=== PATIENT | female | born 1940 ===

== ENCOUNTER 2017-05-24 19:23 | Emergency (ER) | payer OTHER ==
[2017-05-24 19:38] VITALS: BP 115/63; PULSE 96; RESP 16; TEMP 99.7; O2SAT 98
[2017-05-24] MEDS ORDERED: Amoxicillin-Clav 875-125 mg Tab PO STA (20:30)
--- NOTE | 2017-05-24 20:36 | ED PDOC ---
HPI: CCC, URI, Sore Throat Time Seen by Provider: 05/24/17 19:48 Chief Complaint (Nursing): ENT Problem Chief Complaint (Provider): Ear pain History Per: Patient History/Exam Limitations: no limitations Onset/Duration Of Symptoms: Days (3 days ago) Current Symptoms Are (Timing): Still Present Additional Complaint(s): 76 y/o female with a past medical history of Diabetes Mellitus Type 2 and Hypertension presents to the ED complaining of left ear pain, onset of 2 days. Patient reports of taking Tylenol, but experiences minimal relief. Past Medical History Reviewed: Historical Data, Nursing Documentation, Vital Signs Vital Signs: Last Vital Signs Temp 99.7 F H 05/24/17 19:35 Pulse 96 H 05/24/17 19:35 Resp 16 05/24/17 19:35 BP 115/63 05/24/17 19:35 Pulse Ox 98 05/24/17 20:44 - Medical History PMH: Diabetes, HTN Denies: Chronic Kidney Disease - Surgical History Surgical History: No Surg Hx - Family History Family History: States: Unknown Family Hx - Social History Current smoker - smoking cessation education provided: No Ex-Smoker (has not smoked in the last 12 months): No Alcohol: None Drugs: Denies - Home Medications Home Medications: Ambulatory Orders Medication Instructions Recorded GlipiZIDE [Glucotrol] 1 tab PO BID 06/21/16 Metformin HCl [Glucophage] 1 tab PO BID 06/21/16 amLODIPine [Norvasc] 5 mg PO BID 06/21/16 Penicillin VK [Pen-Vee K] 500 mg PO BID #20 tab 06/22/16 Amoxicillin/Clavulanate [Augmentin 1 tab PO BID #14 tab 05/24/17 875 MG-125 MG] Ciprofloxacin/Dexamethasone 1 drop OT BID #1 bottle 05/24/17 [Ciprodex 0.3%-0.1% 7.5 Ml] Ibuprofen [Motrin] 600 mg PO Q6 #20 tab 05/24/17 - Allergies Allergies/Adverse Reactions: Allergies Allergy/AdvReac Type Severity Reaction Status Date / Time No Known Allergies Allergy Verified 05/24/17 19:35 Review of Systems ROS Statement: Except As Marked, All Systems Reviewed And Found Negative Constitutional: Negative for: Fever ENT: Positive for: Ear Pain Physical Exam - Reviewed Nursing Documentation Reviewed: Yes Vital Signs Reviewed: Yes - Physical Exam Appears: Positive for: Non-toxic, No Acute Distress Head Exam: Positive for: ATRAUMATIC Skin: Positive for: Normal Color, Warm Eye Exam: Positive for: Normal appearance ENT: Positive for: Normal ENT Inspection, TM Is/Are (erythematous in the left ear) Cardiovascular/Chest: Positive for: Regular Rate, Rhythm. Negative for: Murmur Respiratory: Positive for: Normal Breath Sounds. Negative for: Respiratory Distress Neurologic/Psych: Positive for: Alert, Oriented. Negative for: Motor/Sensory Deficits - ECG O2 Sat by Pulse Oximetry: 98 (RA) Pulse Ox Interpretation: Normal Medical Decision Making Medical Decision Making: Time: --20:30 Impression: --76 y/o female with Otitis Media Plan: --Amoxicillin 1 tab PO --Ibuprofen 600mg PO Reassess -- doing well on re-eval, stable for discharge Scribe Attestation: Documented by Neftaly Flor acting as a scribe for ALEXA Maya. Disposition - Clinical Impression Clinical Impression: Otitis media - Patient ED Disposition Is Patient to be Admitted: No - Disposition Disposition: Routine/Home Disposition Time: 23:10 Condition: STABLE Prescriptions: Amoxicillin/Clavulanate [Augmentin 875 MG-125 MG] 1 tab PO BID #14 tab Ciprofloxacin/Dexamethasone [Ciprodex 0.3%-0.1% 7.5 Ml] 1 drop OT BID #1 bottle Ibuprofen [Motrin] 600 mg PO Q6 #20 tab Instructions: Otitis Media (ED) Forms: [employer] ([place])
[2017-05-24] MEDS ORDERED: Amoxicillin-Clav 875-125 mg Tab PO ONE (20:37)
== END 2017-05-24 21:03 | disposition home or self-care (01) ==
LOC: H.ER 19:23
DX: H66.90 Otitis media, unspecified, unspecified ear (principal); E11.9 Type 2 diabetes mellitus without complications; I10 Essential (primary) hypertension; Z87.891 Personal history of nicotine dependence

== ENCOUNTER 2018-02-05 17:01 | Observation (INO) | payer SELFPAY ==
[2018-02-05 19:16] LABS: BASO # 0.1 K/uL (0.0-0.2); BASO % 0.8 % (0.0-2.0); EOS # 0.1 K/uL (0.0-0.7); HEMOGLOBIN 7.7 g/dL (12.0-16.0); LYMPH # 1.5 K/uL (1.0-4.3); LYMPH % 13.8 % (20.0-40.0); MEAN CELL VOLUME 69.6 fl (81.0-99.0); MEAN CORPUSCULAR HEMOGLOBIN 20.9 pg (27.0-31.0); MEAN PLATELET VOLUME 8.6 fl (7.2-11.7); MONO # 0.4 K/uL (0.0-0.8); MONO % 3.3 % (0.0-10.0); NEUT % 81.1 % (50.0-75.0); RBC 3.68 Mil/uL (3.80-5.20)
[2018-02-05 19:24] LABS: ALB/GLOB RATIO 1.4 (1.0-2.1); ALBUMIN 4.4 g/dL (3.5-5.0); ALT/SGPT 38 U/L (9-52); AST/SGOT 40 U/L (14-36); BLOOD UREA NITROGEN 18 mg/dl (7-17); CALCIUM 9.4 mg/dL (8.4-10.2); GFR NON-AFRICAN AMERICAN > 60
[2018-02-05 19:30] LABS: PROTHROMBIN TIME 10.5 Seconds (9.8-13.1)
[2018-02-05 19:33] LABS: PARTIAL THROMBOPLASTIN TIME 25.7 Seconds (25.6-37.1)
[2018-02-05 19:35] LABS: IRON < 10 ug/dL (37-170); TOTAL IRON BINDING CAPACITY 475 ug/dL (250-450)
[2018-02-05 19:42] LABS: % IRON SATURATION < 2 % (20-55)
--- NOTE | 2018-02-05 19:50 | ED PDOC ---
HPI: General Adult Time Seen by Provider: 02/05/18 17:53 Chief Complaint (Nursing): Abnormal Labs Chief Complaint (Provider): Abnormal labs History Per: Patient History/Exam Limitations: no limitations Additional Complaint(s): 77yo female, history of gastritis, anemia, hypertension, diabetes, sent to ER for evaluation due to abnormal lab results. Patient reports having progressive lightheadedness x 1 month with no associated chest pain. Patient reports shortness of breath with exertion. She denies any black or bloody stools, lower extremity swelling, or headache. Patient's outpatient workup showed low hemoglobin of 7.2 so patient was sent to ER for further evaluation. PMD: Clinic Past Medical History Reviewed: Historical Data, Nursing Documentation, Vital Signs Vital Signs: Last Vital Signs Temp 98.6 F 02/06/18 12:00 Pulse 100 H 02/06/18 13:13 Resp 18 02/06/18 13:13 BP 151/81 H 02/06/18 12:00 Pulse Ox 98 02/06/18 14:44 - Medical History PMH: Diabetes, Gastritis, HTN Denies: Chronic Kidney Disease - Family History Family History: States: No Known Family Hx - Social History Current smoker - smoking cessation education provided: No - Home Medications Home Medications: Ambulatory Orders Medication Instructions Recorded GlipiZIDE [Glucotrol] 1 tab PO BID 06/21/16 Metformin HCl [Glucophage] 1 tab PO BID 06/21/16 amLODIPine [Norvasc] 5 mg PO BID 06/21/16 Simvastatin 20 mg PO HS #30 tablet 02/05/18 Docusate [Colace] 100 mg PO HS PRN #30 cap 02/06/18 Ferrous Sulfate [Ferosul] 325 mg PO BID #60 tablet 02/06/18 - Allergies Allergies/Adverse Reactions: Allergies Allergy/AdvReac Type Severity Reaction Status Date / Time No Known Allergies Allergy Verified 02/05/18 17:14 Review of Systems ROS Statement: Except As Marked, All Systems Reviewed And Found Negative Cardiovascular: Positive for: Light Headedness Respiratory: Positive for: Shortness of Breath Physical Exam - Reviewed Nursing Documentation Reviewed: Yes Vital Signs Reviewed: Yes - Physical Exam Appears: Positive for: Well, Non-toxic, No Acute Distress Head Exam: Positive for: ATRAUMATIC, NORMAL INSPECTION, NORMOCEPHALIC Skin: Positive for: Warm, Pallor Eye Exam: Positive for: EOMI, PERRL, Other (conjunctival pallor) ENT: Positive for: Normal ENT Inspection Neck: Positive for: Normal, Painless ROM Cardiovascular/Chest: Positive for: Regular Rate, Rhythm Respiratory: Positive for: CNT, Normal Breath Sounds Gastrointestinal/Abdominal: Positive for: Normal Exam, Soft Back: Positive for: Normal Inspection Extremity: Positive for: Normal ROM Neurologic/Psych: Positive for: Alert, Oriented - Laboratory Results Result Diagrams: 02/06/18 13:52 02/05/18 19:06 - ECG ECG: Positive for: Interpreted By Me, Viewed By Me ECG Rhythm: Positive for: Normal QRS, Normal ST Segment, Sinus Tachycardia Rate: 102 O2 Sat by Pulse Oximetry: 96 (RA) Pulse Ox Interpretation: Normal Medical Decision Making Medical Decision Making: Impression: Anemia Reviewed previous labs and on 01/06/18 patient noted to have Hgb 7.2 and low iron levels. Stool occult (3 samples) at that time was negative. Plan: -- Labs -- EKG Labs reviewed, demonstrate Hgb level of 7.7. Patient will be hospitalized for transfusion and further evaluation. Scribe Attestation: Documented by Sumemr Plata, acting as a scribe for Roselyn Spencer MD. Provider Scribe Attestation: All medical record entries made by the Scribe were at my direction and personally dictated by me. I have reviewed the chart and agree that the record accurately reflects my personal performance of the history, physical exam, medical decision making, and the department course for this patient. I have also personally directed, reviewed, and agree with the discharge instructions and disposition. Disposition - Clinical Impression Clinical Impression: Anemia, Iron deficiency Counseled Patient/Family Regarding: Studies Performed, Diagnosis - Disposition Disposition Time: 20:30 Condition: FAIR - Pt Status Changed To: Hospital Disposition Of: Observation - POA Present On Arrival: None
[2018-02-05 20:00] LABS: FERRITIN 5.1 ng/Ml (11.1-264.0)
--- NOTE | 2018-02-05 21:09 | CP.PCM.HP ---
<Aishwarya Yates - Last Filed: 02/06/18 01:11> History of Present Illness - History of Present Illness History of Present Illness: 77 yr old F sent from clinic due to symptomatic anemia. Patient was recently diagnosed with iron deficiency anemia in 10/2017. PMHx includes NIDDM type 2, HTN and hyperlipidemia. [facility] records reviewed, most recent H/H was 7.2/23.3 with FOBT x 3 neg on 01/06/18. Reports fatigue and dyspnea on exertion. Denies dyspnea at rest, chest pain, dizziness, blurry vision or syncope. Denies melena , hematochezia or dark stool. Denies hematuria, abdominal pain, nausea, vomiting , fever or chills. No hx blood transfusion in the past. Denies hx EGD/ colonoscopy in the past. PMD: [facility] PMHx: Iron deficiency anemia, NIDDM type 2, HTN, hyperlipidemia, GERD, hx H. pylori infection in 2014 SurgHx: None SocHx: denies tobacco/Etoh or drugs Familyhx: denies family hx CA or IBD. Daughter has NIDDM type 2 Allergies: NKDA Medications: Metformin 1000 mg po BID, glipizide 10 mg po BID, Simvastatin 20 mg po QD, ASA 81 mg Code status: full code Emergency contact: Shereen Mishra (daughter) [phone] ER course: BP 136/77 mmHg, HR 104 bpm, Temp 98.1 F, Resp rate 20, SpO2 96% on room air -EKG: sinus tachycardia at 102 bpm, no significant ST-T changes -CBC: WBC 11.0, H/H 7.7/25.6, MCV 69.6 RDW 21, plts 262, neutrophil % 81.1 -CMP: wnl, magnesium 1.5 -iron studies: iron <10, TIBC 475, % sat <2, ferritin 5.1 -CXR: official report pending, prelim: no active disease -urine culture pending -ED treatment: 2 units pRBC's Present on Admission - Present on Admission Any Indicators Present on Admission: No History of DVT/PE: No Urinary Catheter: No Decubitus Ulcer Present: No History Surgical Site Infection Following: None Review of Systems - Constitutional Constitutional: Fatigue. absent: Chills, Fever, Headache, Weight Loss - EENT Eyes: absent: Blurred Vision Nose/Mouth/Throat: absent: Nasal Congestion, Sore Throat - Cardiovascular Cardiovascular: absent: Chest Pain, Dyspnea, Leg Edema, Palpitations - Respiratory Respiratory: absent: Cough, Dyspnea, Dyspnea on Exertion - Gastrointestinal Gastrointestinal: absent: Abdominal Pain, Constipation, Diarrhea, Nausea, Vomiting - Genitourinary Genitourinary: absent: Difficulty Urinating, Dysuria - Musculoskeletal Musculoskeletal: absent: Arthralgias, Numbness, Tingling - Neurological Neurological: absent: Tingling, Weakness - Endocrine Endocrine: absent: Polydipsia, Polyphagia, Polyuria - Hematologic/Lymphatic Hematologic: absent: Easy Bleeding, Easy Bruising Past Patient History - Past Medical History & Family History Past Medical History?: Yes - Past Social History Smoking Status: Never Smoked - CARDIAC Hx Hypertension: Yes - PULMONARY Hx Respiratory Disorders: No - NEUROLOGICAL Hx Neurological Disorder: No - HEENT Hx HEENT Problems: No - RENAL Hx Chronic Kidney Disease: No - ENDOCRINE/METABOLIC Hx Diabetes Mellitus Type 2: Yes - HEMATOLOGICAL/ONCOLOGICAL Hx Blood Disorders: No - INTEGUMENTARY Hx Dermatological Problems: No - MUSCULOSKELETAL/RHEUMATOLOGICAL Hx Musculoskeletal Disorders: No - GASTROINTESTINAL Hx Gastritis: Yes - GENITOURINARY/GYNECOLOGICAL Hx Genitourinary Disorders: No - PSYCHIATRIC Hx Psychophysiologic Disorder: No Hx Substance Use: No - SURGICAL HISTORY Hx Surgeries: No - ANESTHESIA Hx Anesthesia: No Hx Anesthesia Reactions: No Hx Malignant Hyperthermia: No Meds Home Medications: Home Medication List Medication Instructions Recorded Confirmed Type Simvastatin 20 mg PO HS #30 tablet 02/05/18 Rx Allergies/Adverse Reactions: Allergies Allergy/AdvReac Type Severity Reaction Status Date / Time No Known Allergies Allergy Verified 02/05/18 17:14 Physical Exam - Constitutional Appears: No Acute Distress - Head Exam Head Exam: ATRAUMATIC, NORMOCEPHALIC - Eye Exam Eye Exam: EOMI, PERRL Additional comments: bilateral pale conjunctiva - ENT Exam ENT Exam: Mucous Membranes Moist - Neck Exam Neck exam: Positive for: Full Rom. Negative for: Lymphadenopathy - Respiratory Exam Respiratory Exam: Clear to Auscultation Bilateral, NORMAL BREATHING PATTERN. absent: Rales, Wheezes - Cardiovascular Exam Cardiovascular Exam: REGULAR RHYTHM, +S1, +S2 - GI/Abdominal Exam GI & Abdominal Exam: Normal Bowel Sounds, Soft. absent: Tenderness - Extremities Exam Extremities exam: Positive for: full ROM. Negative for: calf tenderness, pedal edema, tenderness - Back Exam Back exam: absent: CVA tenderness (L), CVA tenderness (R) - Neurological Exam Neurological exam: Alert, CN II-XII Intact, Oriented x3 - Psychiatric Exam Psychiatric exam: Normal Affect, Normal Mood - Skin Skin Exam: Dry, Normal Color, Warm Results - Vital Signs Recent Vital Signs: Last Vital Signs Temp 98.1 F 02/05/18 17:14 Pulse 104 H 02/05/18 17:14 Resp 20 02/05/18 17:14 BP 136/77 02/05/18 17:14 Pulse Ox 96 02/05/18 19:55 - Labs Result Diagrams: 02/05/18 19:06 02/05/18 19:06 Labs: Laboratory Results - last 24 hr 02/05/18 02/05/18 02/05/18 18:46 19:06 19:06 WBC 11.0 H D RBC 3.68 L Hgb 7.7 L Hct 25.6 L MCV 69.6 L MCH 20.9 L MCHC 30.0 L RDW 21.0 H Plt Count 262 MPV 8.6 Neut % (Auto) 81.1 H Lymph % (Auto) 13.8 L Garfield % (Auto) 3.3 Eos % (Auto) 1.0 Baso % (Auto) 0.8 Neut # (Auto) 9.0 H Lymph # (Auto) 1.5 Garfield # (Auto) 0.4 Eos # (Auto) 0.1 Baso # (Auto) 0.1 PT INR APTT Sodium 140 Potassium 4.3 Chloride 102 Carbon Dioxide 25 Anion Gap 17 BUN 18 H Creatinine 0.7 Est GFR ( Amer) > 60 Est GFR (Non-Af Amer) > 60 Random Glucose 225 H Calcium 9.4 Phosphorus 3.8 Magnesium 1.5 L Iron TIBC % Saturation Ferritin 5.1 L Total Bilirubin 0.1 L AST 40 H ALT 38 Alkaline Phosphatase 76 Troponin I < 0.0120 Total Protein 7.5 Albumin 4.4 Globulin 3.1 Albumin/Globulin Ratio 1.4 TSH 3rd Generation 0.52 Blood Type O POSITIVE Antibody Screen Negative BBK History Checked No verified bt 02/05/18 02/05/18 19:06 19:06 WBC RBC Hgb Hct MCV MCH MCHC RDW Plt Count MPV Neut % (Auto) Lymph % (Auto) [place]field % (Auto) Eos % (Auto) Baso % (Auto) Neut # (Auto) Lymph # (Auto) Garfield # (Auto) Eos # (Auto) Baso # (Auto) PT 10.5 INR 1.0 APTT 25.7 Sodium Potassium Chloride Carbon Dioxide Anion Gap BUN Creatinine Est GFR ( Amer) Est GFR (Non-Af Amer) Random Glucose Calcium Phosphorus Magnesium Iron < 10 L TIBC 475 H % Saturation < 2 L Ferritin Total Bilirubin AST ALT Alkaline Phosphatase Troponin I Total Protein Albumin Globulin Albumin/Globulin Ratio TSH 3rd Generation Blood Type Antibody Screen BBK History Checked Assessment & Plan - Assessment and Plan (Free Text) Assessment: 77 yr old F admitted for symptomatic anemia with PMHx recently diagnosed iron deficiency anemia in 10/2017, Iron deficiency anemia, NIDDM type 2, HTN, hyperlipidemia. Symptomatic iron deficiency anemia -acute -Admit to tele -cbc, type and cross -transfuse 2 units of PRBC; f/u pots transfusion CBC -Monitor H/H NIDDM Type 2 - chronic, Uncontrolled - HbA1C 8.7 on 11/27/17 - hold Metformin - Continue with Glipizide 10mg PO BID Consistent Carbohydrate - POC glucose: ACHS Hypertension -Controlled -amlodipine was discontinued in last clinic visit due to low normal BP Hyperlipidemia -chronic, controlled -continue statin 20mg PO HS DVT prophylaxis -SCDs for now -anticoagulation on held due to anemia Code status: Full code - Date & Time Date: 02/05/18 Time: 21:07 <Harshal Owen - Last Filed: 02/06/18 05:03> Results - Vital Signs Recent Vital Signs: Last Vital Signs Temp 98.6 F 02/06/18 03:56 Pulse 104 H 02/06/18 03:56 Resp 16 02/06/18 03:56 BP 134/73 02/06/18 03:56 Pulse Ox 99 02/06/18 02:57 - Labs Result Diagrams: 02/05/18 19:06 02/05/18 19:06 Labs: Laboratory Results - last 24 hr 02/05/18 02/05/18 02/05/18 18:46 19:06 19:06 WBC 11.0 H D RBC 3.68 L Hgb 7.7 L Hct 25.6 L MCV 69.6 L MCH 20.9 L MCHC 30.0 L RDW 21.0 H Plt Count 262 MPV 8.6 Neut % (Auto) 81.1 H Lymph % (Auto) 13.8 L Garfield % (Auto) 3.3 Eos % (Auto) 1.0 Baso % (Auto) 0.8 Neut # (Auto) 9.0 H Lymph # (Auto) 1.5 Garfield # (Auto) 0.4 Eos # (Auto) 0.1 Baso # (Auto) 0.1 PT INR APTT Sodium 140 Potassium 4.3 Chloride 102 Carbon Dioxide 25 Anion Gap 17 BUN 18 H Creatinine 0.7 Est GFR ( Amer) > 60 Est GFR (Non-Af Amer) > 60 POC Glucose (mg/dL) Random Glucose 225 H Calcium 9.4 Phosphorus 3.8 Magnesium 1.5 L Iron TIBC % Saturation Ferritin 5.1 L Total Bilirubin 0.1 L AST 40 H ALT 38 Alkaline Phosphatase 76 Troponin I < 0.0120 Total Protein 7.5 Albumin 4.4 Globulin 3.1 Albumin/Globulin Ratio 1.4 TSH 3rd Generation 0.52 Urine Color Urine Clarity Urine pH Ur Specific [place] Urine Protein Urine Glucose (UA) Urine Ketones Urine Blood Urine Nitrate Urine Bilirubin Urine Urobilinogen Ur Leukocyte Esterase Urine RBC (Auto) Urine Microscopic WBC Ur Squamous Epith Cells Blood Type O POSITIVE Blood Type Confirm Antibody Screen Negative Crossmatch See Detail BBK History Checked No verified bt 02/05/18 02/05/18 02/05/18 19:06 19:06 21:22 WBC RBC Hgb Hct MCV MCH MCHC RDW Plt Count MPV Neut % (Auto) Lymph % (Auto) [place] % (Auto) Eos % (Auto) Baso % (Auto) Neut # (Auto) Lymph # (Auto) [place] # (Auto) Eos # (Auto) Baso # (Auto) PT 10.5 INR 1.0 APTT 25.7 Sodium Potassium Chloride Carbon Dioxide Anion Gap BUN Creatinine Est GFR ( Amer) Est GFR (Non-Af Amer) POC Glucose (mg/dL) Random Glucose Calcium Phosphorus Magnesium Iron < 10 L TIBC 475 H % Saturation < 2 L Ferritin Total Bilirubin AST ALT Alkaline Phosphatase Troponin I Total Protein Albumin Globulin Albumin/Globulin Ratio TSH 3rd Generation Urine Color Yellow Urine Clarity Slighty-cloudy Urine pH 6.0 Ur Specific [place] 1.016 Urine Protein 30 Urine Glucose (UA) 150 Urine Ketones 20 Urine Blood Negative Urine Nitrate Negative Urine Bilirubin Negative Urine Urobilinogen 0.2-1.0 Ur Leukocyte Esterase Mod Urine RBC (Auto) 2 Urine Microscopic WBC 35 H Ur Squamous Epith Cells 1 Blood Type Blood Type Confirm Antibody Screen Crossmatch BBK History Checked 02/05/18 02/06/18 23:35 00:40 WBC RBC Hgb Hct MCV MCH MCHC RDW Plt Count MPV Neut % (Auto) Lymph % (Auto) [place] % (Auto) Eos % (Auto) Baso % (Auto) Neut # (Auto) Lymph # (Auto) Garfield # (Auto) Eos # (Auto) Baso # (Auto) PT INR APTT Sodium Potassium Chloride Carbon Dioxide Anion Gap BUN Creatinine Est GFR ( Amer) Est GFR (Non-Af Amer) POC Glucose (mg/dL) 190 H Random Glucose Calcium Phosphorus Magnesium Iron TIBC % Saturation Ferritin Total Bilirubin AST ALT Alkaline Phosphatase Troponin I Total Protein Albumin Globulin Albumin/Globulin Ratio TSH 3rd Generation Urine Color Urine Clarity Urine pH Ur Specific [place] Urine Protein Urine Glucose (UA) Urine Ketones Urine Blood Urine Nitrate Urine Bilirubin Urine Urobilinogen Ur Leukocyte Esterase Urine RBC (Auto) Urine Microscopic WBC Ur Squamous Epith Cells Blood Type Blood Type Confirm O POSITIVE Antibody Screen Crossmatch BBK History Checked Attending/Attestation - Attestation I have personally seen and examined this patient.: Yes I have fully participated in the care of the patient.: Yes I have reviewed all pertinent clinical information: Yes Notes (Text): 02/06/18 04:47 I saw and examined this patient with Dr Yates. I agree with the assessment and plan outlined which represent my direct input. This is a 77 years old female with hx of DM II gastritis and HTN who was found to have abnormal lab results of Hemoglobin of 7.2gm/dl in the Clinic and 7.7g/ dl in the ED with low Iron and % saturation with elevated TIBC. A&P #. Iron Deficiency Anemia - Transfuse PRBC - Iron Supplement #. Hypomagnesemia - Magnesium Sulfate #. DM II with hyperglycemia - Regular Insulin according to Accucheck - Metformin - Glipizide - HbA1c 8.7 on 11/27/17 #. HTN uncontrolled - Norvasc #. DVT prophylaxis with SCD #. Code Status: Full
[2018-02-05 21:48] LABS: SQUAMOUS EPITHIAL 1 /hpf (0-5); URINE BILIRUBIN NEGATIVE (NEGATIVE); URINE BLOOD NEGATIVE (NEGATIVE); URINE CLARITY SLIGHTY-CLOUDY (Clear); URINE COLOR YELLOW (YELLOW); URINE GLUCOSE (UA) 150 mg/dL (Normal); URINE LEUKOCYTE ESTERASE MOD Leu/uL (Negative); URINE PROTEIN 30 mg/dL (NEGATIVE); URINE UROBILINOGEN 0.2-1.0 mg/dL (0.2-1.0)
[2018-02-06] MEDS ORDERED: Magnesium Sulfate 2 gm/50 ml 2 GM/50 ML BAG IVPB ONE (04:43)
[2018-02-06] MEDS ORDERED: Magnesium Sulfate 2 gm/50 ml 2 GM/50 ML BAG ONE (06:25)
[2018-02-06] MEDS: Insulin Regular 100 units/ml SC SCH ×2 (07:12→14:25)
--- NOTE | 2018-02-06 07:50 | CARD ---
APPROVED REPORT Date of service: 02/05/2018 EKG Measurement Heart [id number] <Conclusion> Sinus tachycardia Otherwise normal ECG
--- NOTE | 2018-02-06 08:47 | RAD ---
Date of service: 02/05/2018 HISTORY: anemia weakness COMPARISON: Chest radiographs 03/21/2017. FINDINGS: LUNGS: No active pulmonary disease. PLEURA: No significant pleural effusion identified, no pneumothorax apparent. CARDIOVASCULAR: Stable cardiovascular silhouette. No pulmonary vascular congestion. OSSEOUS STRUCTURES: No significant abnormalities. VISUALIZED UPPER ABDOMEN: Normal. OTHER FINDINGS: None. IMPRESSION: No interval acute cardiopulmonary disease appreciated.
[2018-02-06] MEDS ORDERED: Pneumococcal 23-Valent Vaccine IM ONE (13:24)
[2018-02-06 14:41] LABS: HEMOGLOBIN 10.8 g/dL (12.0-16.0); MEAN CELL VOLUME 74.9 fl (81.0-99.0); MEAN CORPUSCULAR HEMOGLOBIN 23.8 pg (27.0-31.0); MEAN CORPUSCULAR HGB CONC 31.8 g/dL (33.0-37.0); RBC 4.55 Mil/uL (3.80-5.20); RED CELL DISTRIBUTION WIDTH 24.1 % (11.5-14.5); WHITE BLOOD COUNT 7.5 K/uL (4.8-10.8)
--- NOTE | 2018-02-06 15:10 | CP.PCM.DIS ---
Provider - Provider Date of Admission: 02/05/18 20:45 Attending physician: Harshal Owen Time Spent in preparation of Discharge (in minutes): 25 Diagnosis - Discharge Diagnosis (1) Iron deficiency anemia Status: Acute (2) Diabetes mellitus Status: Chronic (3) Leukocytosis Status: Resolved (4) Hypertension Status: Chronic Hospital Course - Lab Results Lab Results: Most Recent Lab Values WBC 7.5 K/uL (4.8-10.8) 02/06/18 13:52 RBC 4.55 Mil/uL (3.80-5.20) 02/06/18 13:52 Hgb 10.8 g/dL (12.0-16.0) L D 02/06/18 13:52 Hct 34.1 % (34.0-47.0) 02/06/18 13:52 MCV 74.9 fl (81.0-99.0) L D 02/06/18 13:52 MCH 23.8 pg (27.0-31.0) L 02/06/18 13:52 MCHC 31.8 g/dL (33.0-37.0) L 02/06/18 13:52 RDW 24.1 % (11.5-14.5) H 02/06/18 13:52 Plt Count 230 K/uL (130-400) 02/06/18 13:52 MPV 8.6 fl (7.2-11.7) 02/05/18 19:06 Neut % (Auto) 81.1 % (50.0-75.0) H 02/05/18 19:06 Lymph % (Auto) 13.8 % (20.0-40.0) L 02/05/18 19:06 [place] % (Auto) 3.3 % (0.0-10.0) 02/05/18 19:06 Eos % (Auto) 1.0 % (0.0-4.0) 02/05/18 19:06 Baso % (Auto) 0.8 % (0.0-2.0) 02/05/18 19:06 Neut # (Auto) 9.0 K/uL (1.8-7.0) H 02/05/18 19:06 Lymph # (Auto) 1.5 K/uL (1.0-4.3) 02/05/18 19:06 [place] # (Auto) 0.4 K/uL (0.0-0.8) 02/05/18 19:06 Eos # (Auto) 0.1 K/uL (0.0-0.7) 02/05/18 19:06 Baso # (Auto) 0.1 K/uL (0.0-0.2) 02/05/18 19:06 PT 10.5 Seconds (9.8-13.1) 02/05/18 19:06 INR 1.0 02/05/18 19:06 APTT 25.7 Seconds (25.6-37.1) 02/05/18 19:06 Sodium 140 mmol/l (132-148) 02/05/18 19:06 Potassium 4.3 MMOL/L (3.6-5.0) 02/05/18 19:06 Chloride 102 mmol/L (98-107) 02/05/18 19:06 Carbon Dioxide 25 mmol/L (22-30) 02/05/18 19:06 Anion Gap 17 (10-20) 02/05/18 19:06 BUN 18 mg/dl (7-17) H 02/05/18 19:06 Creatinine 0.7 mg/dl (0.7-1.2) 02/05/18 19:06 Est GFR ( Amer) > 60 02/05/18 19:06 Est GFR (Non-Af Amer) > 60 02/05/18 19:06 POC Glucose (mg/dL) 143 mg/dL (65-110) H 02/06/18 06:57 Random Glucose 225 mg/dL (65-105) H 02/05/18 19:06 Calcium 9.4 mg/dL (8.4-10.2) 02/05/18 19:06 Phosphorus 3.8 mg/dl (2.5-4.5) 02/05/18 19:06 Magnesium 1.5 MG/DL (1.6-2.3) L 02/05/18 19:06 Iron < 10 ug/dL (37-170) L 02/05/18 19:06 TIBC 475 ug/dL (250-450) H 02/05/18 19:06 % Saturation < 2 % (20-55) L 02/05/18 19:06 Ferritin 5.1 ng/Ml (11.1-264.0) L 02/05/18 19:06 Total Bilirubin 0.1 mg/dl (0.2-1.3) L 02/05/18 19:06 AST 40 U/L (14-36) H 02/05/18 19:06 ALT 38 U/L (9-52) 02/05/18 19:06 Alkaline Phosphatase 76 U/L (38-126) 02/05/18 19:06 Troponin I < 0.0120 ng/mL (0.00-0.120) 02/05/18 19:06 Total Protein 7.5 G/DL (6.3-8.2) 02/05/18 19:06 Albumin 4.4 g/dL (3.5-5.0) 02/05/18 19:06 Globulin 3.1 gm/dL (2.2-3.9) 02/05/18 19:06 Albumin/Globulin Ratio 1.4 (1.0-2.1) 02/05/18 19:06 TSH 3rd Generation 0.52 mIU/ML (0.46-4.68) 02/05/18 19:06 Urine Color Yellow (YELLOW) 02/05/18 21:22 Urine Clarity Slighty-cloudy (Clear) 02/05/18 21: Urine pH 6.0 (5.0-8.0) 02/05/18 21:22 Ur Specific [place] 1.016 (1.003-1.030) 02/05/18 21:22 Urine Protein 30 mg/dL (NEGATIVE) 02/05/18 21:22 Urine Glucose (UA) 150 mg/dL (Normal) 02/05/18 21:22 Urine Ketones 20 mg/dL (NEGATIVE) 02/05/18 21:22 Urine Blood Negative (NEGATIVE) 02/05/18 21:22 Urine Nitrate Negative (NEGATIVE) 02/05/18 21: Urine Bilirubin Negative (NEGATIVE) 02/05/18 21:22 Urine Urobilinogen 0.2-1.0 mg/dL (0.2-1.0) 02/05/18 21:22 Ur Leukocyte Esterase Mod Anat/uL (Negative) 02/05/18 21:22 Urine RBC (Auto) 2 /hpf (0-3) 09/06/18 21:22 Urine Microscopic WBC 35 /hpf (0-5) H 02/05/18 21:22 Ur Squamous Epith Cells 1 /hpf (0-5) 02/05/18 21:22 Blood Type O POSITIVE 02/05/18 18:46 Blood Type Confirm O POSITIVE 02/05/18 23:35 Antibody Screen Negative 02/05/18 18:46 Crossmatch See Detail 02/05/18 18:46 BBK History Checked No verified bt 02/05/18 18:46 - Hospital Course Hospital Course: 77 yr old Female sent from clinic due to symptomatic anemia. Patient was recently diagnosed with iron deficiency anemia in 10/2017. PMHx includes NIDDM type 2, HTN and hyperlipidemia. [facility] records reviewed, most recent H/H was 7.2/23.3 with FOBT x 3 neg on 01/06/18. Reports fatigue and dyspnea on exertion. Denies dyspnea at rest, chest pain, dizziness, blurry vision or syncope. Denies melena, hematochezia or dark stool. Denies hematuria, abdominal pain, nausea, vomiting, fever or chills. No hx blood transfusion in the past. Denies hx EGD/ colonoscopy in the past. Pt was admitted yesterday and received 2 units of PRBC today and 1 dose of venofar. Pt's H&H is 10.8/34.1. Pt reports she is feeling better. Denies any dyspnea with ambulation, dyspnea at rest, chest pain, or dizziness. Pt is medically stable to discharge home with po ferrous sulfate. Recommend to have outpatient EGD and colonoscopy to further eval the new onset anemia. Please follow up with PMD on 12/13/17 at 1:20 pm. Discharge Exam - Head Exam Head Exam: ATRAUMATIC, NORMOCEPHALIC - Eye Exam Eye Exam: EOMI, PERRL Additional comments: bilateral pale conjunctiva - ENT Exam ENT Exam: Mucous Membranes Moist - Respiratory Exam Respiratory Exam: Clear to PA & Lateral, NORMAL BREATHING PATTERN. absent: Wheezes, Respiratory Distress - Cardiovascular Exam Cardiovascular Exam: REGULAR RHYTHM, RRR, +S1, +S2 - GI/Abdominal Exam GI & Abdominal Exam: Normal Bowel Sounds, Soft. absent: Tenderness - Neurological Exam Neurological exam: Alert, Normal Gait, Oriented x3 - Psychiatric Exam Psychiatric exam: Normal Affect, Normal Mood - Skin Skin Exam: Normal Color, Warm Discharge Plan - Discharge Medications Prescriptions: Docusate [Colace] 100 mg PO HS PRN #30 cap PRN Reason: Constipation Ferrous Sulfate [Ferosul] 325 mg PO BID #60 tablet Simvastatin 20 mg PO HS #30 tablet - Follow Up Plan Condition: FAIR Disposition: HOME/ ROUTINE Patient education suggested?: Yes Instructions: Anemia Caused by Low Iron, Adult (DC) Additional Instructions: Please follow up with your PMD on 12/13/17 at 1:20 pm at [facility] Referrals: [facility] [Provider Group]
[2018-02-06 16:28] VITALS: BP 121/68; PULSE 107; RESP 20; TEMP 97.7; O2SAT 98
== END 2018-02-06 17:42 | disposition home or self-care (01) ==
LOC: H.ER 17:01 → H.ERHOLD 20:45 → H.TEL 02-06 11:53
PROVIDERS: ADMIT Internal Medicine; ATTEND Internal Medicine
DX: D50.9 Iron deficiency anemia, unspecified (principal); E78.5 Hyperlipidemia, unspecified; K21.9 Gastro-esophageal reflux disease without esophagitis; K29.70 Gastritis, unspecified, without bleeding; I10 Essential (primary) hypertension; E83.42 Hypomagnesemia; E11.65 Type 2 diabetes mellitus with hyperglycemia; D72.829 Elevated white blood cell count, unspecified
CPT/HCPCS: 36415; 36430; 71045; 80053; 81003; 82728; 82948; 83540; 83550; 83735; 84100; 84443; 84484; 85025; 85027; 85610; 85730; 86850; 86900; 86920; 87086; 93005; 96365; 97116; 97162; 99284; G0378; G8978; G8979; J1756; P9051